=== PATIENT | female | born 1965 | race Two or more races ===

== ENCOUNTER 2016-10-20 04:24 | Inpatient (IN) | payer MEDICAID ==
[~2016-10-20] VITALS: Ht 121.9 cm; Wt 65.3 kg
[~2016-10-20 04:24] MED LIST: ASCO500T8 PO; ASPI-605 PO; DOCU-270 PO; FERR325T6 PO
[2016-10-20] MEDS ORDERED: HYDROMORPHONE 1 MG/1 ML DISP.SYRIN ONE (05:20)
[2016-10-20] MEDS ORDERED: ONDANSETRON 4 MG TAB.RAPDIS ONE (05:20)
[2016-10-20] MEDS ORDERED: HYDROMORPHONE INJ 2 MG/ML DISP.SYRIN IM ONE (05:30)
[2016-10-20] MEDS ORDERED: ONDANSETRON 4 MG TAB.RAPDIS SL ONE (05:30)
[2016-10-20 05:36] LABS: BASOPHILS % (AUTO) 0.2 % (0.0-2.0); DIFF TOTAL % 100 %; EOSINOPHILS % (AUTO) 0.4 % (0.0-6.0); HEMATOCRIT 29 % (33-45); HEMOGLOBIN 8.8 g/dL (11.5-14.8); LYMPHOCYTES # (AUTO) 2.2 /CMM (0.8-4.8); LYMPHOCYTES % (AUTO) 24.3 % (20.0-44.0); MEAN CORPUSCULAR HEMOGLOBIN 17 PG (26.0-33.0); MEAN CORPUSCULAR HGB CONC 30 g/dl (31.0-36.0); MEAN CORPUSCULAR VOLUME 58 fL (82-100); MONOCYTES # (AUTO) 0.4 /CMM (0.1-1.30); MONOCYTES % (AUTO) 4.2 % (2.0-12.0); NEUTROPHILS # (AUTO) 6.5 /CMM (1.8-8.9); NEUTROPHILS % (AUTO) 70.9 % (43.0-81.0); PLATELET COUNT (AUTO) 373 /CMM (150-450); RED BLOOD CELL COUNT(AUTO) 5.07 MIL/uL (4.0-5.2); WHITE BLOOD COUNT (AUTO) 9.1 K/uL (4.3-11.0)
[2016-10-20 05:45] LABS: ANISOCYTOSIS 2+; CALCIUM, SERUM 8.2 mg/dL (8.5-10.1); CREATININE 0.4 mg/dL (0.6-1.3); HYPOCHROMASIA 2+; MICROCYTOSIS 2+; POTASSIUM 3.6 mmol/L (3.5-5.1)
[2016-10-20 05:59] LABS: INR 0.97 (0.87-1.13); PROTHROMBIN TIME 10.5 SECS (9.5-12.7)
[2016-10-20 06:05] LABS: ALBUMIN 3.8 g/dL (3.4-5.0); BILIRUBIN,DIRECT 0.1 mg/dL (0.0-0.2); BILIRUBIN,TOTAL 0.4 mg/dL (0.2-1.0); INDIRECT BILIRUBIN 0.3 mg/dL (0.0-1.1); TOTAL PROTEIN, SERUM 6.9 g/dL (6.4-8.2)
[2016-10-20] MEDS ORDERED: CEFTRIAXONE 1GM BAG (ER ONLY) 50 ML IV ONE (08:20)
[2016-10-20] MEDS ORDERED: METRONIDAZOLE 500MG/ NS 100ML 100 ML IV ONE ×2 (08:20→08:30)
[2016-10-20] MEDS ORDERED: IV SET PRIMARY PUMP SET 1 EA INFUS.SET MC ONE ×2 (08:21→11:42)
[2016-10-20] MEDS ORDERED: CEFTRIAXONE 1 G in IV D5W 50 ML IV ONE (08:30)
[2016-10-20] MEDS ORDERED: ACETAMINOPHEN 325 MG TABLET PO PRN (10:30)
[2016-10-20] MEDS ORDERED: ONDANSETRON HCL/PF 4 MG/2 ML VIAL IVP PRN (10:30)
[2016-10-20] MEDS ORDERED: MORPHINE SULFATE INJ 2 MG/ML DISP.SYRIN IV PRN (10:30)
[2016-10-20] MEDS ORDERED: SECONDARY IV SET 1 EA INFUS.SET MC ONE (11:42)
[2016-10-20] MEDS: PIPERACILLIN /TAZOBACTAM 3.375 G in IV D5W 50 ML IV SCH ×3 (11:53→23:34)
[2016-10-20] MEDS: IV D5/0.45 NACL 1,000 ML IV PRN (11:53)
[2016-10-20 16:00] VITALS: BP 109/63
[2016-10-20 20:00] VITALS: BP 104/54
[2016-10-20] MEDS ORDERED: ZOLPIDEM TARTRATE 5 MG TABLET PO PRN (22:00)
[2016-10-21] MEDS: PIPERACILLIN /TAZOBACTAM 3.375 G in IV D5W 50 ML IV SCH ×2 (05:50→14:26)
[2016-10-21] MEDS: IV D5/0.45 NACL 1,000 ML IV PRN (05:50)
[2016-10-21 07:04] LABS: DIFF TOTAL % 100 %; EOSINOPHILS # (AUTO) 0.2 /CMM (0.0-0.7); EOSINOPHILS % (AUTO) 3.1 % (0.0-6.0); HEMATOCRIT 27 % (33-45); HEMOGLOBIN 8.1 g/dL (11.5-14.8); LYMPHOCYTES # (AUTO) 1.9 /CMM (0.8-4.8); LYMPHOCYTES % (AUTO) 31.5 % (20.0-44.0); MEAN CORPUSCULAR HEMOGLOBIN 17 PG (26.0-33.0); MEAN CORPUSCULAR HGB CONC 30 g/dl (31.0-36.0); MEAN CORPUSCULAR VOLUME 58 fL (82-100); MONOCYTES # (AUTO) 0.5 /CMM (0.1-1.30); MONOCYTES % (AUTO) 8.3 % (2.0-12.0); NEUTROPHILS # (AUTO) 3.4 /CMM (1.8-8.9); NEUTROPHILS % (AUTO) 57.1 % (43.0-81.0); PLATELET COUNT (AUTO) 292 /CMM (150-450); RED BLOOD CELL COUNT(AUTO) 4.69 MIL/uL (4.0-5.2); WHITE BLOOD COUNT (AUTO) 5.9 K/uL (4.3-11.0)
[2016-10-21 07:07] LABS: ALBUMIN 3.2 g/dL (3.4-5.0); CREATININE 0.5 mg/dL (0.6-1.3); POTASSIUM 3.5 mmol/L (3.5-5.1); THYROID STIMULATING HORMONE 1.673 uIU/mL (0.358-3.74)
[2016-10-21 07:21] LABS: BILIRUBIN,TOTAL 0.6 mg/dL (0.2-1.0); PHOSPHORUS 3.8 mg/dL (2.5-4.9); TOTAL PROTEIN, SERUM 6.1 g/dL (6.4-8.2)
[2016-10-21 08:00] VITALS: BP 105/50
[2016-10-21 08:28] LABS: ERYTHROCYTE SEDIMENTATION RATE 9 MM/HR (0-30)
[2016-10-21] MEDS ORDERED: PANTOPRAZOLE 40 MG VIAL IV SCH (09:00)
[2016-10-21] MEDS ORDERED: SECONDARY IV SET 1 EA INFUS.SET MC ONE (14:20)
[2016-10-21] MEDS ORDERED: HYDR-548 PO (17:55)
[2016-10-21] MEDS ORDERED: IBUP-51 PO (17:55)
[2016-10-21] MEDS ORDERED: LEVO500T15 PO (17:55)
[2016-10-22] MEDS ORDERED: SOD FERRIC GLUC 125 MG in IV NS 0.9% 100 ML IV SCH (14:00)
[2016-10-25 13:10] LABS: *HGBFR CHEMOGLOBIN SOLUBILITY Negative (Negative)
== END 2016-10-21 19:00 | disposition home or self-care (01) ==
LOC: ER 04:24 → MEDSG2 08:39
PROVIDERS: ADMIT Nurse Practitioner Acute Care; ATTEND Nurse Practitioner Acute Care
DX: K80.10 Calculus of gallbladder with chronic cholecystitis without obstruction (principal); D25.9 Leiomyoma of uterus, unspecified; D50.9 Iron deficiency anemia, unspecified; E78.5 Hyperlipidemia, unspecified; I69.320 Aphasia following cerebral infarction; Z86.12 Personal history of poliomyelitis; Z79.82 Long term (current) use of aspirin
CPT/HCPCS: 36415; 71010-TC; 76705-TC; 78226; 80048-TC; 80053-TC; 80061-TC; 80076-TC; 82728-TC; 83021; 83540-TC; 83605-TC; 83690-TC; 83735-TC; 84100-TC; 84439-TC; 84443-TC; 85025-TC; 85045-TC; 85652-TC; 85660; 85730-TC; 86850-TC; 86901; 87040-TC; 87081-TC; A4606; A9537; J0696; J1170; J2543; J2916; J3490; J7030; J7060; Q0162; Z7610

== ENCOUNTER 2016-10-28 05:16 | Emergency (ER) | payer MEDICAID ==
[~2016-10-28] VITALS: Ht 152.4 cm; Wt 63.5 kg
[~2016-10-28 05:16] MED LIST changes: -DOCU-270 PO; +HYDR-548 PO; +IBUP-51 PO; +LEVO500T15 PO
[2016-10-28] MEDS ORDERED: IV NS 0.9% 500 ML IV ONE (06:07)
[2016-10-28] MEDS ORDERED: FAMOTIDINE/PF INJ 20 MG/2 ML VIAL IV ONE ×2 (06:07→06:30)
[2016-10-28] MEDS ORDERED: IV SET PRIMARY 1 EA INFUS.SET MC ONE (06:07)
[2016-10-28] MEDS ORDERED: KETOROLAC TROMETHAMINE 15 MG/ML VIAL ONE (06:07)
[2016-10-28] MEDS ORDERED: IV NS 0.9% 500 ML BAG IV ONE (06:30)
[2016-10-28] MEDS ORDERED: KETOROLAC TROMETHAMINE INJ 30 MG/ML VIAL IV ONE (06:30)
[2016-10-28 06:41] LABS: DIFF TOTAL % 100 %; EOSINOPHILS # (AUTO) 0.2 /CMM (0.0-0.7); EOSINOPHILS % (AUTO) 2.1 % (0.0-6.0); HEMATOCRIT 30 % (33-45); HEMOGLOBIN 8.8 g/dL (11.5-14.8); LYMPHOCYTES # (AUTO) 2.5 /CMM (0.8-4.8); LYMPHOCYTES % (AUTO) 27.1 % (20.0-44.0); MEAN CORPUSCULAR HEMOGLOBIN 17 PG (26.0-33.0); MEAN CORPUSCULAR HGB CONC 30 g/dl (31.0-36.0); MEAN CORPUSCULAR VOLUME 58 fL (82-100); MONOCYTES # (AUTO) 0.5 /CMM (0.1-1.30); MONOCYTES % (AUTO) 5.7 % (2.0-12.0); NEUTROPHILS % (AUTO) 65.1 % (43.0-81.0); PLATELET COUNT (AUTO) 382 /CMM (150-450); RED BLOOD CELL COUNT(AUTO) 5.08 MIL/uL (4.0-5.2); WHITE BLOOD COUNT (AUTO) 9.3 K/uL (4.3-11.0)
[2016-10-28 06:44] LABS: KETONES,URINE NEGATIVE (NEGATIVE); LEUKOCYTE ESTERASE ,URINE NEGATIVE (NEGATIVE); PH,URINE 5.5 (5.0-8.0)
[2016-10-28 06:47] LABS: ADD UA MICROSCOPIC YES
[2016-10-28 06:50] LABS: ADD URINE CULTURE NO; CALCIUM, SERUM 7.2 mg/dL (8.5-10.1); CREATININE 0.3 mg/dL (0.6-1.3); MUCUS,URINE Few /LPF (None Seen); POTASSIUM 3.5 mmol/L (3.5-5.1); WBC,URINE 0-2 /HPF (0-3)
[2016-10-28 06:56] LABS: ALBUMIN 3.1 g/dL (3.4-5.0); BILIRUBIN,TOTAL 0.3 mg/dL (0.2-1.0); TOTAL PROTEIN, SERUM 5.9 g/dL (6.4-8.2)
[2016-10-28 06:57] LABS: INDIRECT BILIRUBIN 0.3 mg/dL (0.0-1.1)
[2016-10-28 07:18] LABS: BAND % (MANUAL) 2 % (0.0-5.0); EOSINOPHILS % (MANUAL) 2 % (0-4); LYMPHOCYTES % (MANUAL) 29 % (16-48); PLATELET ESTIMATE ADEQUATE
[2016-10-28 07:19] LABS: ANISOCYTOSIS 3+; HYPOCHROMASIA 2+; MICROCYTOSIS 3+; POLYCHROMASIA 1+
[2016-10-28 07:44] VITALS: BP 120/59
== END 2016-10-28 07:45 | disposition home or self-care (01) ==
LOC: ER 05:20
DX: K80.20 Calculus of gallbladder without cholecystitis without obstruction (principal); D25.9 Leiomyoma of uterus, unspecified; E78.00 Pure hypercholesterolemia, unspecified; D50.9 Iron deficiency anemia, unspecified; A80.9 Acute poliomyelitis, unspecified; Z86.73 Personal history of transient ischemic attack (TIA), and cerebral infarction without residual deficits; Z79.82 Long term (current) use of aspirin
CPT/HCPCS: 36415; 76705-TC; 80048-TC; 80076-TC; 81000-TC; 83690-TC; 85025-TC; A4606; J1885; J3490; J7040; Z7610

== ENCOUNTER 2017-09-13 11:38 | Emergency (ER) | payer MEDICAID ==
[~2017-09-13] VITALS: Ht 152.4 cm; Wt 68.0 kg
[~2017-09-13 11:38] MED LIST changes: -LEVO500T15 PO; +LEVO500T75 PO
[2017-09-13 11:44] VITALS: BP 154/67
[2017-09-13] MEDS ORDERED: DOCUSATE SODIUM LIQ 100 MG/10 ML UDC ONE ×2 (12:15→12:29)
[2017-09-13] MEDS: DOCUSATE SODIUM LIQ 100 MG/10 ML UDC NG ONE (12:32)
== END 2017-09-13 13:18 | disposition home or self-care (01) ==
LOC: ER 11:40
DX: H61.21 Impacted cerumen, right ear (principal); E78.00 Pure hypercholesterolemia, unspecified; Z86.73 Personal history of transient ischemic attack (TIA), and cerebral infarction without residual deficits; Z79.82 Long term (current) use of aspirin
CPT/HCPCS: 99283; A4606; Z7610

== ENCOUNTER 2017-09-17 16:10 | Emergency (ER) | payer MEDICAID ==
[~2017-09-17] VITALS: Ht 154.9 cm; Wt 65.3 kg
[2017-09-17 16:12] VITALS: BP 136/88
== END 2017-09-17 17:04 | disposition home or self-care (01) ==
LOC: ER 16:12
DX: J06.9 Acute upper respiratory infection, unspecified (principal); E78.00 Pure hypercholesterolemia, unspecified; D50.0 Iron deficiency anemia secondary to blood loss (chronic); Z86.73 Personal history of transient ischemic attack (TIA), and cerebral infarction without residual deficits; Z79.82 Long term (current) use of aspirin
CPT/HCPCS: 99282; A4606; Z7610

== ENCOUNTER 2018-10-04 11:37 | Emergency (ER) | payer MEDICAID ==
[~2018-10-04] VITALS: Ht 149.9 cm; Wt 70.8 kg
[~2018-10-04 11:37] MED LIST changes: +HYDR-4354 PO; -HYDR-548 PO
--- NOTE | 2018-10-04 12:15 | NUR ---
PT BIB SELF c/o Body aches and chills since waking up this morning. alert and oriented x 4, verbally responsive and able to make needs known. breathign evenly and unlabored. kept comfortable.
[2018-10-04] MEDS ORDERED: ACETAMINOPHEN 325 MG TABLET PO ONE (12:30)
[2018-10-04] MEDS ORDERED: ACETAMINOPHEN ES 500 MG TABLET ONE (12:39)
--- NOTE | 2018-10-04 12:40 | NUR ---
patient bib self c/o Body aches and chills since waking up this morning. alert and oriented x 4, verbally responsive and able to make needs known. on room air, breathing evenly and unlabored. kept comfortable. will continue to monitor accordingly.
--- NOTE | 2018-10-04 12:46 | NUR ---
Flu swab collected and sent to lab
[2018-10-04 14:30] VITALS: BP 118/79
--- NOTE | 2018-10-04 14:31 | NUR ---
Patient discharged to home in stable condition. Written and verbal after care instructions given. Patient verbalizes understanding of instruction.
== END 2018-10-04 14:31 | disposition home or self-care (01) ==
LOC: ER 11:41
DX: J06.9 Acute upper respiratory infection, unspecified (principal); D25.9 Leiomyoma of uterus, unspecified; E78.00 Pure hypercholesterolemia, unspecified; A80.9 Acute poliomyelitis, unspecified; G89.29 Other chronic pain; Z79.82 Long term (current) use of aspirin; Z86.73 Personal history of transient ischemic attack (TIA), and cerebral infarction without residual deficits
CPT/HCPCS: 87804 ×2; 99283; A4606; Z7610; 87400

== ENCOUNTER 2019-07-24 15:10 | Emergency (ER) | payer SELFPAY ==
[~2019-07-24] VITALS: Ht 157.5 cm; Wt 71.7 kg
[2019-07-24] MEDS ORDERED: IV NS 0.9% 1,000 ML BAG IV ONE (16:00)
[2019-07-24] MEDS ORDERED: ONDANSETRON HCL/PF 4 MG/2 ML VIAL IVP ONE (16:00)
[2019-07-24] MEDS ORDERED: KETOROLAC TROMETHAMINE INJ 30 MG/ML VIAL IV ONE (16:00)
[2019-07-24 16:14] LABS: BASOPHILS % (AUTO) 0.4 % (0.0-2.0); EOSINOPHILS % (AUTO) 2.4 % (0.0-6.0); HEMATOCRIT 51 % (33-45); HEMOGLOBIN 17.3 g/dL (11.5-14.8); LYMPHOCYTES # (AUTO) 0.7 /CMM (0.8-4.8); MEAN CORPUSCULAR HGB CONC 34 g/dl (31.0-36.0); MEAN CORPUSCULAR VOLUME 85 fL (82-100); MONOCYTES # (AUTO) 0.3 /CMM (0.1-1.30); MONOCYTES % (AUTO) 2.5 % (2.0-12.0); NEUTROPHILS # (AUTO) 8.9 /CMM (1.8-8.9); NEUTROPHILS % (AUTO) 87.7 % (43.0-81.0); PLATELET COUNT (AUTO) 239 /CMM (150-450); RED BLOOD CELL COUNT(AUTO) 5.96 MIL/uL (4.0-5.2); WHITE BLOOD COUNT (AUTO) 10.2 K/uL (4.3-11.0)
[2019-07-24] MEDS ORDERED: KETOROLAC TROMETHAMINE 15 MG/ML VIAL ONE (16:15)
[2019-07-24] MEDS ORDERED: ONDANSETRON HCL/PF 4 MG/2 ML VIAL ONE (16:15)
[2019-07-24 16:31] LABS: CALCIUM, SERUM 9.3 mg/dL (8.5-10.1); CREATININE 0.7 mg/dL (0.6-1.3)
[2019-07-24 16:38] LABS: ALBUMIN 4.8 g/dL (3.4-5.0); BILIRUBIN,DIRECT 0.2 mg/dL (0.0-0.2); BILIRUBIN,TOTAL 0.9 mg/dL (0.2-1.0); TOTAL PROTEIN, SERUM 8.3 g/dL (6.4-8.2)
--- NOTE | 2019-07-24 17:46 | NUR ---
PT. CAME IN TO ER W/ HEADACHE 04/04 FROM WORK. STATES THAT SHE IS FEELING NAUSEOUS AND VOMITING. AAOX4. NO SOB. NOT IN ANY DISTRESS. NO FEVER. WILL CONTINUE TO MONITOR.
--- NOTE | 2019-07-24 17:47 | NUR ---
IV removed. Catheter intact and site benign. Pressure and 4x4 applied to site. No bleeding noted. Patient discharged to home in stable condition. Written and verbal after care instructions given. Patient verbalizes understanding of instruction.
[2019-07-24 17:53] VITALS: BP 123/72
== END 2019-07-24 17:53 | disposition home or self-care (01) ==
LOC: ER 15:18 → EDBD 15:18 → ER 17:53
DX: A05.9 Bacterial foodborne intoxication, unspecified (principal); R19.7 Diarrhea, unspecified; E78.00 Pure hypercholesterolemia, unspecified; D64.9 Anemia, unspecified; Z86.73 Personal history of transient ischemic attack (TIA), and cerebral infarction without residual deficits; Z79.82 Long term (current) use of aspirin
CPT/HCPCS: 36415; 80048; 80076; 83690; 85025; 96361; 96374; 96375; 99283; J1885; J2405; J7030

== ENCOUNTER 2021-11-14 00:21 | Emergency (ER) | payer SELFPAY ==
[~2021-11-14] VITALS: Ht 152.4 cm; Wt 68.0 kg
[~2021-11-14 00:21] MED LIST changes: +ASCO-373 PO; -ASCO500T8 PO; +LEVO500T23 PO; -LEVO500T75 PO
--- NOTE | 2021-11-14 00:36 | NUR ---
BIBS C/O MID EPIGASTRIC PAIN NON RADIATING "WORST AFTER EATING" [id number] VOMITTED 1X TODAY. PATIENT ALERT AND ORIENTED X3. IN A GOWN AND ON A MONITOR WITH NON LABORED BREATHING.
[2021-11-14] MEDS ORDERED: ONDANSETRON HCL/PF 4 MG/2 ML VIAL ONE (00:40)
[2021-11-14] MEDS ORDERED: MORPHINE SULFATE INJ 4 MG/ML DISP.SYRIN ONE (00:40)
--- NOTE | 2021-11-14 00:56 | NUR ---
blood sent to lab
[2021-11-14] MEDS ORDERED: ONDANSETRON HCL/PF 4 MG/2 ML VIAL IVP ONE (01:00)
[2021-11-14] MEDS ORDERED: IV NS 0.9% 500 ML BAG IV ONE (01:00)
[2021-11-14] MEDS ORDERED: MORPHINE SULFATE INJ 2 MG/ML DISP.SYRIN IV ONE (01:00)
--- NOTE | 2021-11-14 01:15 | NUR ---
us at bedside
[2021-11-14 01:29] LABS: BASOPHILS % (AUTO) 0.3 % (0.0-2.0); EOSINOPHILS % (AUTO) 1.3 % (0.0-6.0); HEMATOCRIT 43 % (33-45); HEMOGLOBIN 14.5 g/dL (11.5-14.8); LYMPHOCYTES # (AUTO) 1.6 K/uL (0.8-4.8); LYMPHOCYTES % (AUTO) 19.8 % (20.0-44.0); MEAN CORPUSCULAR HGB CONC 34 g/dl (31.0-36.0); MEAN CORPUSCULAR VOLUME 83 fL (82-100); MONOCYTES # (AUTO) 0.4 K/uL (0.1-1.30); MONOCYTES % (AUTO) 4.9 % (2.0-12.0); NEUTROPHILS # (AUTO) 6.1 K/uL (1.8-8.9); NEUTROPHILS % (AUTO) 73.7 % (43.0-81.0); PLATELET COUNT (AUTO) 261 K/uL (150-450); RED BLOOD CELL COUNT(AUTO) 5.17 MIL/uL (4.0-5.2); WHITE BLOOD COUNT (AUTO) 8.2 K/uL (4.3-11.0)
[2021-11-14 02:02] LABS: ALANINE AMINOTRANSFERASE 215 U/L (12-78); ALBUMIN 3.9 g/dL (3.4-5.0); ALKALINE PHOSPHATASE 139 U/L (46-116); ASPARTATE AMINOTRANSFERASE 197 U/L (15-37); BILIRUBIN,DIRECT 0.5 mg/dL (0.0-0.2); CALCIUM, SERUM 8.9 mg/dL (8.5-10.1); CARBON DIOXIDE 28 mmol/L (21-32); CHLORIDE 98 mmol/L (98-107); CREATININE 0.4 mg/dL (0.6-1.3); GLUCOSE 136 mg/dL (74-106); LIPASE 104 U/L (73-393); POTASSIUM 4.3 mmol/L (3.5-5.1); SODIUM SERUM 134 mmol/L (136-145); TOTAL PROTEIN, SERUM 7.5 g/dL (6.4-8.2); UREA NITROGEN, BLOOD 11 mg/dL (7-18)
--- NOTE | 2021-11-14 02:16 | NUR ---
Patient discharged to home in stable condition. Written and verbal after care instructions given. Patient verbalizes understanding of instruction. IV removed. Catheter intact and site benign. Pressure and 4x4 applied to site. No bleeding noted.pt ambulatory with a steady gait
[2021-11-14 02:27] VITALS: BP 119/80
== END 2021-11-14 02:16 | disposition home or self-care (01) ==
LOC: ER 00:25
DX: K80.70 Calculus of gallbladder and bile duct without cholecystitis without obstruction (principal); R11.2 Nausea with vomiting, unspecified; E78.00 Pure hypercholesterolemia, unspecified; Z86.73 Personal history of transient ischemic attack (TIA), and cerebral infarction without residual deficits; Z79.899 Other long term (current) drug therapy; Z79.82 Long term (current) use of aspirin
CPT/HCPCS: 36415; 71045; 76705; 80048; 80076; 83690; 84484; 85025; 85730; 93005; 96374; 96375; 99285; J2270; J2405; J7040